=== PATIENT | male | born 1935 | race Two or more races ===

== ENCOUNTER 2016-10-31 16:08 | Inpatient (IN) | payer MEDICARE ==
[~2016-10-31] VITALS: Ht 180.3 cm; Wt 98.0 kg
[2016-10-31 17:37] VITALS: BP 138/77
[2016-10-31] MEDS ORDERED: SIMV20TA6 PO (17:39)
[2016-10-31] MEDS ORDERED: QUET25TA PO (17:39)
[2016-10-31] MEDS ORDERED: ASPI81TA2 PO (17:39)
[2016-10-31] MEDS ORDERED: RANI150T8 PO (17:39)
--- NOTE | 2016-10-31 17:39 | NUR ---
RN-CO: Patient came here at the unit with original 72 hours hold for GD. Patient is alert and oriented x2, otherwise confused and delusional. He is paranoid upon face to face. Skin assessment was done, but he refused to sign admitting papers. Dr Ramey was paged for admitting orders, awaiting for him to call back. Belongings were screened for contraband, discussed patient's right but he is passive in listening. He was oriented to the unit. Offered dinner.
--- NOTE | 2016-10-31 17:45 | NUR ---
RN-CO: Noted patient is tangential, valuables was taken to the supervisor metal furniture assembly's safe.
--- NOTE | 2016-10-31 18:07 | NUR ---
RN-CO: DR SOLARES CALLED BACK AND GAVE HIS ADMITTING ORDERS.
[2016-10-31 20:00] VITALS: BP 132/65
--- NOTE | 2016-10-31 20:00 | NUR ---
RN GPS NOTES DR. BURCIAGA NOTIFED OF NEW ADMISSION ABOUT MEDS RECON , PER DR. PACK I WILL DO IT .
--- NOTE | 2016-10-31 20:53 | NUR ---
RN-NOTES ADMITTED 80 Y.O MALE PATIENT ADMITTED FROM [facility] PER HOLD 5150 FOR DANGER TO SELF. PER HOLD GD , DELUSIONAL , PARANOID AUDITORY AND VISUAL HALLUCINATIONS , UNABLE TO SELF CARE BOTH MD AWARE OF PATIENT ADMISSION IN THE UNIT WITH ORDERS. CONTRABAND AND BODY CHECK DONE. UPON FACE TO FACE ASSESSMENT ,PATIENT IS CALM AND COOPERATIVE DURING ADMISSION PROCESS. PATIENT LAYING IN HIS BED AT THIS TIME ,NO ACUTE DISTRESS NOTED . ALL NEEDS ATTENDED AND ANTICIPATED. ORIENTED UNIT ENCOURAGE PT. ANY FEELING CONCERN VERBALIZE TO STAFF, WILL CONTINUE TO MONITOR FOR SAFETY AND BEHAVIOR
[2016-10-31 22:56] VITALS: BP 140/76
--- NOTE | 2016-11-01 07:08 | NUR ---
RN GPS NOTES PATIENT RESTING HIS BED, NO ACUTE DISTRESS NOTED ,NO CHANGES IN STATUS. ALL NEEDS ATTENDED ANTICIPATED . DENIES SI/HI AT THIS TIME, PT. COMPLY WITH DUE MEDS ,WILL ENDORSE TO NEXT SHIFT FOR CONTINUITY CARE
[2016-11-01 08:00] VITALS: BP 119/64
[2016-11-01 08:51] LABS: CHOLESTEROL 176 mg/dL (<200); HDL CHOLESTEROL 57 mg/dL (40-60); LDL 103 mg/dL (0-99); TRIGLYCERIDES 103 mg/dL (30-150)
[2016-11-01 08:54] LABS: ALANINE AMINOTRANSFERASE 28 U/L (12-78); ALBUMIN 3.4 g/dL (3.4-5.0); ALKALINE PHOSPHATASE 96 U/L (46-116); ASPARTATE AMINOTRANSFERASE 24 U/L (15-37); BILIRUBIN,TOTAL 0.5 mg/dL (0.2-1.0); CALCIUM, SERUM 9.4 mg/dL (8.5-10.1); CARBON DIOXIDE 27 mmol/L (21-32); CHLORIDE 108 mmol/L (98-107); CREATININE 1.3 mg/dL (0.6-1.3); GLUCOSE 96 mg/dL (74-106); SODIUM SERUM 144 mmol/L (136-145); UREA NITROGEN, BLOOD 20 mg/dL (7-18)
--- NOTE | 2016-11-01 09:12 | NUR ---
gps rn notes/ administered ativan 1 mg po prn for anxiety, paranoia, as prescribed by md, bp-119/64, p-63, continued monitoring.
--- NOTE | 2016-11-01 11:45 | NUR ---
CALLED DR. BEAVERS FOR THE CONSULT AND LEFT A MESSAGE.
[2016-11-01 16:00] VITALS: BP 104/67
[2016-11-01 20:00] VITALS: BP 113/61
[2016-11-02 07:56] LABS: CALCIUM, SERUM 9.4 mg/dL (8.5-10.1); CARBON DIOXIDE 26 mmol/L (21-32); CHLORIDE 108 mmol/L (98-107); CREATININE 1.3 mg/dL (0.6-1.3); GLUCOSE 88 mg/dL (74-106); POTASSIUM 3.8 mmol/L (3.5-5.1); SODIUM SERUM 143 mmol/L (136-145); UREA NITROGEN, BLOOD 21 mg/dL (7-18)
[2016-11-02 08:00] VITALS: BP 122/76
--- NOTE | 2016-11-02 08:23 | NUR ---
GPS RN NOTES/ ADMINISTERED ATIVAN 1 MG PO PRN FOR ANXIETY, PARANOIA , V/S TAKEN BP-122/76, P-65, CONTINUED MONITORING .
[2016-11-02 16:10] VITALS: BP 116/72
[2016-11-02 20:18] VITALS: BP 125/54
[2016-11-03 08:00] VITALS: BP 127/47
[2016-11-03 08:29] VITALS: BP 127/47
--- NOTE | 2016-11-03 09:00 | NUR ---
GPS/RN PATIENT REFUSED SEROQUEL 50 MG PO, EXPLAINED RISKS AND BENEFITS, WILL CONTINUE TO ENCOURAGE TO COMPLY WITH MD REGIMEN.
--- NOTE | 2016-11-03 10:31 | NUR ---
Initial discharge plan: Pt. lives alone at [address], [place] [address] and wants to return upon discharge. IVONE spoke with APS social media project manager, Marlee [phone] to verify if pt. is able to return. Per Marlee, it is not going to be possible as the house is not livable. At this point, pt. wants to return home and refuses a placement. IVONE will follow up with MD and will arrange for a safe and proper discharge.
[2016-11-03 13:52] LABS: PHOSPHORUS 3.5 mg/dL (2.5-4.9)
--- NOTE | 2016-11-03 15:00 | NUR ---
GPS/RN PATIENT IS REFUSING TO PROVIDE URINE SPECIMEN FOR URINALYSIS,EXPLAINED RISKS AND BENEFITS, WILL CONTINUE TO ENCOURAGE PATIENT TO PROVIDE SAMPLE.
[2016-11-03 16:00] VITALS: BP 128/50
--- NOTE | 2016-11-03 16:00 | NUR ---
GPS/RN PATIENT REFUSED CT SCAN WITH AND WITHOUT CONTRAST, EXPLAINED RISKS AND BENEFITS, REFUSED TO SIGN CONSENT, STATED "IM NOT TAKING ANY TESTS FROM YOU PEOPLE", WILL CONTINUE TO ENCOURAGE TO COMPLY WITH MD REGIMEN.
--- NOTE | 2016-11-03 19:30 | NUR ---
GPS RN NOTE, RECEIVED PATIENT AWAKE AND IN BED, NO S/S OR COMPLAINTS OF PAIN AT THIS TIME. PATIENT IS DISPLAYING NO S/S OF APPARENT DISTRESS AT THIS TIME. PATIENT BREATHING IS UNLABORED WITH EQUAL RISE AND FALL OF THE CHEST. PATIENT HAS A FAMILY MEMBER AT THE BEDSIDE TYING TO ENCOURAGE THE PATIENT TO EAT. PATIENT IS ALERT AND ORIENTED X 1 ON ROOM AIR WITH A SPO2 98%. PATIENT NON COMPLAINT WITH MEDICATION, ANXIOUS, UNCOOPERATIVE AT TIMES, GUARDED, SUSPICIOUS, AND NEEDS REORIENTATION. PATIENT DENIES SUICIDE AND HOMICIDAL IDEATIONS AT THIS TIME. PATIENT ASSISTED WITH TURNING AND REPOSITIONING Q2HR AND PRN FOR COMFORT AND CIRCULATION. PATIENT HAS NO NEEDS AT THIS TIME. PATIENT EDUCATED ON THE USE OF THE CALL REYNAGA. PATIENT BED SIDE RAILS UP X2 FOR SAFETY, BED IS LOCKED AND LOW WILL CONTINUE TO MONITOR AND MAINTAIN SAFETY.
[2016-11-03 20:16] VITALS: BP 135/62
[2016-11-04 08:00] VITALS: BP 128/62
--- NOTE | 2016-11-04 09:21 | NUR ---
ADMINISTERED ATIVAN 1 MG PO PRN FOR ANXIETY, PARANOIA, V/S STABLE BP -128/62, P-66, CONTINUED MONITORING. Addendum: 11/04/16 at 943 by MARCELO FAGAN RN 920 MEDICATION MENTION ABOVE NOTES PATIENT SPIT OUT. CONTINUED MONITORING. Addendum: 11/04/16 at 951 by MARCELO FAGAN RN ATIVAN 1 MG WASTED IN THE [facility], PHARMACY NOTIFIED.
--- NOTE | 2016-11-04 11:45 | NUR ---
WOUND CARE CONSULT: PT PRESENTS WITH FRAGILE DRY SKIN AND SOME SKIN TEARS TO LEFT ARM. PT IS CONTINENT AND AMBULATORY. RECOMMENDATIONS MADE FOR WOUND CARE AND DISCUSSED WITH NURSING STAFF. WILL SEE PRN. RINALDI IN AGREEMENT WITH PLAN OF CARE. Addendum: 11/04/16 at 1147 by SYLVIA GARCIA WNDNU Amended: Links added.
--- NOTE | 2016-11-04 15:16 | NUR ---
As pt. is not able to return home due to the house being in an unlivable condition, SW referred the patient to [address] [address] ([phone]). Pt. has been accepted per Steve at the facility.
[2016-11-04 16:00] VITALS: BP 151/85
--- NOTE | 2016-11-04 17:24 | NUR ---
GPS RN NOTES/ ADMINISTERED ATIVAN 1 MG PO PRN FOR ANXIETY, PARANOIA, V/S TAKE BP 151/85, P-76, CONTINUED MONITORING.
[2016-11-04 20:09] VITALS: BP 143/65
[2016-11-04 20:15] LABS: APPEARANCE,URINE CLEAR (CLEAR); BILIRUBIN,URINE NEGATIVE (NEGATIVE); BLOOD, URINE NEGATIVE Ery/uL (NEGATIVE); COLOR,URINE YELLOW (YELLOW); KETONES,URINE NEGATIVE (NEGATIVE); LEUKOCYTE ESTERASE ,URINE NEGATIVE (NEGATIVE); NITRITE, URINE NEGATIVE (NEGATIVE); PH,URINE 5.5 (5.0-8.0); PROTEIN,URINE NEGATIVE (NEGATIVE); UGLUCOSE NEGATIVE (NEGATIVE); UROBILINOGEN,URINE 0.2 EU/dL (0.2)
[2016-11-05 08:00] VITALS: BP 143/95
--- NOTE | 2016-11-05 08:00 | NUR ---
POULTRY VACCINATOR RECEIVED PT IN ROOM AOX1 SUSPICIOUS DOES NOT ANSWER QUESTIONS PT REFUSED MEDS, PACING IN THE HALLWAYS, PT COMPLAINING ABOUT THE FLOOR CLEANING AGENT, PT CONSUMED BREAKFAST AGITATED AT TIMES WANTS TO GO HOME AND COMPLAINS THIS IS NOT A HOSPITAL.
[2016-11-05 16:00] VITALS: BP 138/69
[2016-11-05 20:00] VITALS: BP 146/73
[2016-11-05 20:37] VITALS: BP 146/73
[2016-11-06 08:00] VITALS: BP 150/80
--- NOTE | 2016-11-06 10:13 | NUR ---
CHIEF ELECTRICIAN-NOTES PATIENT REFUSED SEROQUEL 25 MG P.O AND REFUSED WOUND TREATMENT ON HIS LEFT HAND. EXPLAINED RISK AND BENEFITS BUT PATIENT GETS ANGRY AND ARGUMENTATIVE. STATED" I HAVE THE RIGHT TO REFUSED MEDICATIONS". OFFERED X3.
--- NOTE | 2016-11-06 13:49 | NUR ---
HIRED WORKER-NOTES DR. SOLARES IN THE UNIT AND MADE AWARE OF PATIENT REFUSAL OF SEROQUEL MEDICATION EARLIER. DR. SOLARES SPOKE TO THE PATIENT AND AGREES TO TAKE HIS MEDICATION. SEROQUEL 25MG P.O GIVEN ORDERED AT THIS TIME.
[2016-11-06 16:00] VITALS: BP 140/79
[2016-11-06 20:00] VITALS: BP 128/70
[2016-11-07 08:00] VITALS: BP 129/78
--- NOTE | 2016-11-07 10:42 | NUR ---
GPS/RN PT REFUSED SEROQUEL IN AM. OFFERED X3. MADE AWARE.
[2016-11-07 16:00] VITALS: BP 132/57
[2016-11-07 20:00] VITALS: BP 135/81
[2016-11-08 08:00] VITALS: BP 131/62
[2016-11-08 15:55] VITALS: BP 172/89
--- NOTE | 2016-11-08 19:45 | NUR ---
GPS RN NOTES RECEIVED IN THE ROOM,LAYING IN BED,WITH LIMITED VERBAL RESPONSE.APPEARS DEPRESSED AND WITHDRAWN.WILL CONTINUE TO MONITOR BEHAVIOR AND MANAGE ACCORDINGLY.
[2016-11-08 20:00] VITALS: BP 134/64
--- NOTE | 2016-11-09 08:08 | NUR ---
[id number]: GAVE ATIVAN 1 MG PO DUE TO SEVERE ANXIETY UPON PT REQUEST AND WILL CONTINUE TO MONITOR FOR EFFECTIVENESS OF MEDICATION.
[2016-11-09 08:25] VITALS: BP 129/60
--- NOTE | 2016-11-09 09:00 | NUR ---
[id number]: PT REFUSED WOUND TREATMENT AT THIS TIME
[2016-11-09 16:00] VITALS: BP 161/90
--- NOTE | 2016-11-09 16:24 | NUR ---
[id number]: GAVE ATIVAN 1 MG PO DUE TO SEVERE ANXIETY UPON PT REQUEST AND WILL CONTINUE TO MONITOR FOR EFFECTIVENESS OF MEDICATION.
--- NOTE | 2016-11-09 19:34 | NUR ---
GPS/RN NOTE: COMFORTABLE, RESTING IN BED, NO APPARENT DISTRESS NOTED.
[2016-11-09 19:48] VITALS: BP 156/72
--- NOTE | 2016-11-09 20:49 | NUR ---
GPS/RN NOTE: PATIENT REFUSED SKIN ASSESSMENT AND PHOTO TAKEN, NOT COOPERATING AT THIS TIME.
--- NOTE | 2016-11-09 21:02 | NUR ---
GPS/RN NOTE: OFFERED NIGHT MEDICATION RISPERDAL 1 MG DUE AT 2100. PATIENT REFUSED TO TAKE IT, STATED THAT HE WANTS TO TAKE IT TOMORROW. EXPLAINED THE BENEFITS X3, PATIENT RESPONDED, " WHATEVER."
[2016-11-10 07:33] LABS: BASOPHILS % (AUTO) 0.8 % (0.0-2.0); EOSINOPHILS # (AUTO) 0.2 /CMM (0.0-0.7); EOSINOPHILS % (AUTO) 4.6 % (0.0-6.0); HEMATOCRIT 34 % (39-51); LYMPHOCYTES # (AUTO) 1.1 /CMM (0.8-4.8); LYMPHOCYTES % (AUTO) 25.1 % (20.0-44.0); MEAN CORPUSCULAR HEMOGLOBIN 28 PG (26.0-33.0); MEAN CORPUSCULAR HGB CONC 33 g/dl (31.0-36.0); MEAN CORPUSCULAR VOLUME 86 fL (80-96); MONOCYTES # (AUTO) 0.4 /CMM (0.1-1.30); MONOCYTES % (AUTO) 9.4 % (2.0-12.0); NEUTROPHILS # (AUTO) 2.6 /CMM (1.8-8.9); NEUTROPHILS % (AUTO) 60.1 % (43.0-81.0); PLATELET COUNT (AUTO) 204 /CMM (150-450); RDW COEFFICIENT OF VARIATION 15.1 (11.5-15.0); RED BLOOD CELL COUNT(AUTO) 3.91 MIL/uL (4.5-6.0); WHITE BLOOD COUNT (AUTO) 4.3 K/uL (4.3-11.0)
[2016-11-10 07:47] LABS: CALCIUM, SERUM 8.7 mg/dL (8.5-10.1); CARBON DIOXIDE 25 mmol/L (21-32); CHLORIDE 110 mmol/L (98-107); CREATININE 1.1 mg/dL (0.6-1.3); GLUCOSE 90 mg/dL (74-106); POTASSIUM 4.3 mmol/L (3.5-5.1); SODIUM SERUM 143 mmol/L (136-145); UREA NITROGEN, BLOOD 16 mg/dL (7-18)
--- NOTE | 2016-11-10 07:56 | NUR ---
[id number]: GAVE ATIVAN 1 MG PO DUE TO SEVERE ANXIETY UPON PT REQUEST AND WILL CONTINUE TO MONITOR FOR EFFECTIVENESS OF MEDICATION
[2016-11-10 08:00] VITALS: BP 128/65
--- NOTE | 2016-11-10 13:08 | NUR ---
IVONE spoke to patient regarding placement and informed him that he was accepted to [facility] [address] [place] [address] ([phone]). Pt. refusing to go to [facility] and stated that he wants to return home. IVONE spoke to Inga [facility] Sales Representative [employer] and informed her that patient is refusing placement and would like to return home. Per Inga, "We have done everything we can for him, you have done everything you can, if he is refusing placement than we cannot force him to go and he can return home." IVONE informed psychiatrist Dr. Ramey.
--- NOTE | 2016-11-10 13:24 | NUR ---
SW attempted to contact Thai Gu ([phone]) and Minoo Lopez ([phone]) regarding transportation for patient wanting to return home. However, neither of them were available. pulley worker left both of them a detailed voicemail with direct contact information. pulley worker will follow-up.
--- NOTE | 2016-11-10 15:37 | NUR ---
IVONE spoke to Thai Gu ([phone]) to arrange transportation. Per Thai Gu, transportation will pick-up the patient at noon tomorrow.
[2016-11-10 16:00] VITALS: BP 134/59
--- NOTE | 2016-11-10 17:03 | NUR ---
[id number]: GAVE ATIVAN 1 MG PO DUE TO SEVERE ANXIETY UPON PT REQUEST AND WILL CONTINUE TO MONITOR FOR EFFECTIVENESS OF MEDICATION
[2016-11-10 20:25] VITALS: BP 137/57
[2016-11-11 08:00] VITALS: BP 129/79
[2016-11-11 16:11] VITALS: BP 124/57
[2016-11-11 20:18] VITALS: BP 152/75
[2016-11-12 08:04] VITALS: BP 124/75
--- NOTE | 2016-11-12 15:01 | NUR ---
SW spoke to Minoo Lopez ([phone]) to arrange transportation. Per Minoo Lopez, she does not know if she will have transportation available for tomorrow but would try and if they cannot arrange transportation for tomorrow she will arrange it for Thursday.
[2016-11-12 16:08] VITALS: BP 111/73
--- NOTE | 2016-11-12 19:30 | NUR ---
GPS RN NOTE, RECEIVED PATIENT AWAKE AND IN BED, NO S/S OR COMPLAINTS OF PAIN AT THIS TIME. PATIENT IS DISPLAYING NO S/S OF APPARENT DISTRESS AT THIS TIME. PATIENT BREATHING IS UNLABORED WITH EQUAL RISE AND FALL OF THE CHEST. PATIENT IS ALERT AND ORIENTED X 1 ON ROOM AIR WITH A SPO2 95%. PATIENT COMPLIANT MEDICATION, ANXIOUS, CONFUSED, DISORGANIZED, WITHDRAWN, DEPRESSED, DISORGANIZE, COOPERATIVE, HYPERVERBAL AT TIMES, AND NEEDS REORIENTATION. PATIENT DENIES SUICIDE AND HOMICIDAL IDEATIONS AT THIS TIME. PATIENT ASSISTED WITH TURNING AND REPOSITIONING Q2HR AND PRN FOR COMFORT AND CIRCULATION. PATIENT HAS NO NEEDS AT THIS TIME. PATIENT EDUCATED ON THE USE OF THE CALL REYNAGA. PATIENT BED SIDE RAILS UP X2 FOR SAFETY, BED IS LOCKED AND LOW WILL CONTINUE TO MONITOR AND MAINTAIN SAFETY.
[2016-11-12 20:03] VITALS: BP 100/62
[2016-11-13 08:00] VITALS: BP 145/72
--- NOTE | 2016-11-13 15:26 | NUR ---
IVONE spoke to Minoo Lopez ([phone]) to arrange transportation. Per Minoo Lopez, transportation will pick-up the patient at noon tomorrow.
[2016-11-13 16:00] VITALS: BP 137/69
[2016-11-13 20:00] VITALS: BP 120/75
[2016-11-14 06:49] LABS: BASOPHILS % (AUTO) 0.7 % (0.0-2.0); EOSINOPHILS # (AUTO) 0.2 /CMM (0.0-0.7); EOSINOPHILS % (AUTO) 4.6 % (0.0-6.0); HEMATOCRIT 34 % (39-51); LYMPHOCYTES # (AUTO) 0.9 /CMM (0.8-4.8); LYMPHOCYTES % (AUTO) 22.1 % (20.0-44.0); MEAN CORPUSCULAR HEMOGLOBIN 28 PG (26.0-33.0); MEAN CORPUSCULAR HGB CONC 32 g/dl (31.0-36.0); MEAN CORPUSCULAR VOLUME 86 fL (80-96); MONOCYTES # (AUTO) 0.5 /CMM (0.1-1.30); MONOCYTES % (AUTO) 11.4 % (2.0-12.0); NEUTROPHILS # (AUTO) 2.5 /CMM (1.8-8.9); NEUTROPHILS % (AUTO) 61.2 % (43.0-81.0); PLATELET COUNT (AUTO) 182 /CMM (150-450); RDW COEFFICIENT OF VARIATION 14.8 (11.5-15.0); RED BLOOD CELL COUNT(AUTO) 3.96 MIL/uL (4.5-6.0); WHITE BLOOD COUNT (AUTO) 4.1 K/uL (4.3-11.0)
[2016-11-14 07:06] LABS: CALCIUM, SERUM 8.8 mg/dL (8.5-10.1); CARBON DIOXIDE 26 mmol/L (21-32); CHLORIDE 107 mmol/L (98-107); CREATININE 1.2 mg/dL (0.6-1.3); GLUCOSE 89 mg/dL (74-106); POTASSIUM 3.9 mmol/L (3.5-5.1); SODIUM SERUM 140 mmol/L (136-145); UREA NITROGEN, BLOOD 24 mg/dL (7-18)
[2016-11-14 08:21] VITALS: BP 137/68
--- NOTE | 2016-11-14 14:15 | NUR ---
GPS RN: PER DR. SOLARES'S ORDER, PATIENT'S HOLD DISCONTINUED AND PATIENT DISCHARGED HOME TO [address] [place] [address]. ALL BELONGINGS RETURNED TO THE PATIENT. SAHARA HEARTANO, THE STRATEGIC CLIENT EXECUTIVE AND MENTAL PLACEMENT MANAGER FROM [facility] RECOUNTED PATIENT'S MONEY AND SIGNED THE RECEIPT (SEE THE PROPERTY MANAGEMENT FORM IN THE CHART). PATIENT'S VS STABLE, PATIENT DENIES SI/HI/AVH. PER IVONE MORALES'S NOTE, SHE FILED AN APS REPORTS WITH [facility] AND WILL FOLLOW UP (SEE NOTES). PATIENT LEFT THE UNIT ACCOMPANIED BY THE AFOREMENTIONED SAHARA HOLT AND STAFF MEMBER, GOING VIA [facility] TRANSPORT[facility]. Addendum: 11/15/16 at 1002 by GERALD LAMAS RN PT REFUSED PICTURES OF SKIN PROBLEMS.
--- NOTE | 2016-11-14 14:21 | NUR ---
corrections caseworker filed an APS report with [facility]. SW called in to Armaan Bazzi ([phone]) and faxed the form to [phone]). corrections caseworker will follow-up.
--- NOTE | 2016-11-14 14:26 | NUR ---
Discharge Note: Patient was discharged home to [address] [place] [id number] . [facility] transportation. Patient was agreeable with the discharge plan. Patient's mood and affect were calm and appropriate upon discharge. Patient denied suicidal and homicidal ideations. Patient was referred to [facility] ([phone]) [place] [address]. informed [facility] oncology social workerMarlee [phone] of patient's discharge. Facilitated info to IDT team who are in agreement with discharge arrangement. The multidisciplinary exitcare form was done, printed, signed, and given to the patient.
--- NOTE | 2016-11-14 14:38 | NUR ---
bilingual social worker faxed the Confidential Morbidity Report to [facility] ([phone]).
== END 2016-11-14 14:15 | disposition home or self-care (01) | DRG 885 ==
LOC: GPS 16:53
PROVIDERS: ADMIT Psychiatry & Neurology Psychiatry; ATTEND Psychiatry & Neurology Psychiatry
DX: F31.9 Bipolar disorder, unspecified (principal); F03.90 Unspecified dementia, unspecified severity, without behavioral disturbance, psychotic disturbance, mood disturbance, and anxiety; F29 Unspecified psychosis not due to a substance or known physiological condition; Z73.6 Limitation of activities due to disability; E78.5 Hyperlipidemia, unspecified; F41.9 Anxiety disorder, unspecified; K21.9 Gastro-esophageal reflux disease without esophagitis; Z79.899 Other long term (current) drug therapy; Z86.73 Personal history of transient ischemic attack (TIA), and cerebral infarction without residual deficits; Z91.14 Patient's other noncompliance with medication regimen; F10.21 Alcohol dependence, in remission; Z79.82 Long term (current) use of aspirin; E66.9 Obesity, unspecified; Z68.30 Body mass index [BMI] 30.0-30.9, adult
CPT/HCPCS: 36415; 80048-TC; 80053-TC; 80061-TC; 81000-TC; 83735-TC; 84100-TC; 84443-TC; 85025-TC; 87081-TC; A6402; Z7610